=== PATIENT | male | born 1980 | race Caucasian/White ===

== ENCOUNTER 2021-01-19 23:58 | Emergency (ER) | payer MEDICAID ==
[~2021-01-19] VITALS: Ht 177.8 cm; Wt 70.0 kg
--- OUTSIDE RECORDS SUMMARY | 2021-01-20 00:11 | XMS REPORT | Clinical Summary ---
Author Author [facility] Organization [facility] Address Unknown Phone Unavailable Care Team Providers Care Head Of Stock Name Role Phone German Ro MD Unavailable Neymar Tenorio DO [id number] Neymar Tenorio DO PCP Source Comments Some departments are not documenting in the electronic medical record. If you d o not see the information that you expected, contact Release of Information in [facility] Information Management department at [phone] for further assistan ce in locating additional records.[facility] Allergies No Known Active Allergies Medications End Date Status Medication Sig Dispensed Refills Start Date Active benztropine (COGENTIN) 1 Take 1 mg by 0 mg tablet mouth twice daily. Active risperiDONE (RISPERDAL) 2 Take 2 mg by 0 mg tablet mouth twice daily. Active ALPRAZolam (XANAX) 0.5 mg Take 0.5 mg 0 tablet by mouth three times daily as needed. Active ledipasvir-sofosbuvir(+) Take 1 Tab by 30 Tab 1 (HARVONI) 90-400 mg mouth daily. 5 tabletIndications: Chronic hepatitis C without hepatic coma (HCC) Active Problems No known active problems Social History Date Tobacco Use Types Packs/Day Years Used Current Every Day Smoker Cigarettes 1 Comments Alcohol Use Standard Drinks/Week No 0 (1 standard drink = 0.6 o z pure alcohol) Sex Assigned at Date Recorded Not on file Last Filed Vital Signs Reading Time Taken Comments Vital Sign 110/72 12/16/2014 10:12 AM CDT Blood Pressure 76 12/16/2014 10:12 AM CDT Pulse 36.4 C (97.6 F) 12/16/2014 10:12 AM CDT Temperature 16 12/16/2014 10:12 AM CDT Respiratory Rate - - Oxygen Saturation - - Inhaled Oxygen Concentration 77.8 kg (171 lb 9.6 oz) 12/16/2014 10:12 AM CDT Weight 180.3 cm (5' 11") 12/16/2014 10:12 AM CDT Height 23.93 12/16/2014 10:12 AM CDT Body Mass Index Plan of Treatment Health Maintenance Due Date Last Done Comments DTAP/TDAP VACCINES (1 - 1999 Tdap) PHYSICAL (COMPREHENSIVE) 1999 EXAM INFLUENZA VACCINE 11/12/2020 HEPATITIS C SCREENING Completed 11/15/2014, 11/15/2014 HIV SCREENING Completed 11/15/2014 Results Not on filefrom Last 3 Months Insurance Type Payer Benefit Subscriber ID Effective Phone Address Plan / Dates Group Medicaid [facility] MEDICAID [facility] [id number] 2014-P [employer] [id number] ([place]) [place] [id number] Advance Directives Patient Salesforce Business Analyst Explanation Type Date Recorded Advance 11/15/2014 2:42 PM Directive/DPOA
[2021-01-20 00:22] VITALS: BP 135/111
--- NOTE | 2021-01-20 00:26 | ED General ---
General Stated Complaint: WANTS TO BE EVALUATED;JUST GOT OUT OF [facility] Source of Information: Patient Exam Limitations: No Limitations History of Present Illness Date Seen by Provider: Jan 20, 2021 Time Seen by Provider: 00:11 Initial Comments Patient to the ER by private conveyance with his daughter and chief complaint that he had an episode at home with some family members and they were trying to remove him from his home. His family brought him out to the ER to be evaluated. He denies any homicidal suicidal ideations. He denies having any hallucinations or command hallucinations. He states he takes his Risperdal half a milligram from his [facility] psychiatrist on a scheduled basis. He is not having any pain nausea vomiting diarrhea fever chills sweats. He denies any physical altercation. He declines going to what happened tonight any further. His family dropped him off and left. Allergies and Home Medications Patient Home Medication List Home Medication List Reviewed: Yes Review of Systems Review of Systems Constitutional: No chills, No diaphoresis EENTM: No ear discharge, No ear pain Respiratory: No cough, No short of breath Cardiovascular: No chest pain, No edema Gastrointestinal: No abdominal pain, No nausea, No vomiting Genitourinary: No discharge, No dysuria Musculoskeletal: No back pain, No joint pain Skin: No pruritus, No rash All Other Systems Reviewed Negative Unless Noted: Yes Past Hhhplcc-Pxhqpe-Jkjcwx Hx Patient Social History Tobacco Use?: Yes Smoking Status: Current Everyday Smoker Smokeless Tobacco Frequency: Current Everyday User Use of E-Cig and/or Vaping dev: No Substance use?: Yes Substance type: Marijuana Alcohol Use?: No Physical Exam Vital Signs Capillary Refill : Height, Weight, BMI Height: '" Weight: lbs. oz. kg; BMI Method: General Appearance: No Apparent Distress, WD/WN Eyes: Bilateral Eye Normal Inspection, Bilateral Eye PERRL, Bilateral Eye EOMI HEENT: PERRL/EOMI, TMs Normal, Pharynx Normal, Moist Mucous Membranes Neck: Full Range of Motion, Normal Inspection Respiratory: No Accessory Muscle Use, No Respiratory Distress Extremity: Normal Capillary Refill, Normal Inspection, No Pedal Edema Neurologic/Psychiatric: Alert, Oriented x3, No Motor/Sensory Deficits, Normal Mood/Affect (Cooperative, denies hallucinations, suicidal ideation, homicidal ideation.) Skin: Normal Color, Warm/Dry Progress/Results/Core Measures Suspected Sepsis SIRS Temperature: Pulse: Respiratory Rate: Blood Pressure / Mean: Results/Orders Vital Signs/I&O Capillary Refill : Progress Note : Time: 00:24 Progress Note Patient does not appear to be in acute distress physically or psychologically. He does not want any help. He states he came out because his daughter insisted he come out just to be evaluated. He does not feel he is having any difficulty and wishes to return home. His daughter stated she would come by to pick him up when he was done. Departure Impression Primary Impression: General medical exam Additional Impression: History of schizophrenia Disposition: HOME, SELF-CARE Condition: Stable Departure-Patient Inst. Decision time for Depature: 00:25 Referrals: [facility] (PCP/Family) Primary Care Physician Patient Instructions: Schizophrenia (DC) Add. Discharge Instructions: Continue taking your medications as prescribed. Keep your follow-up appointment in the next couple weeks with your psychiatrist. Return to the ER if you are having worsening symptoms especially such as suicidal thoughts, commanding hallucinations or other worrisome symptoms. RA STODDARD Jan 20, 2021 00:26
== END 2021-01-20 00:27 | disposition home or self-care (01) ==
LOC: EDUNIT# 23:58 → ER 01-20 00:08
DX: Z00.00 Encounter for general adult medical examination without abnormal findings (principal); Z86.59 Personal history of other mental and behavioral disorders; F17.200 Nicotine dependence, unspecified, uncomplicated
CPT/HCPCS: 99281

== ENCOUNTER 2021-01-20 01:12 | Emergency (ER) | payer MEDICAID ==
--- NOTE | 2021-01-20 01:43 | ED Psychosocial ---
General Stated Complaint: PSYCH ISSUES Source: patient Exam Limitations: no limitations History of Present Illness Date Seen by Provider: Jan 20, 2021 Time Seen by Provider: 01:15 Initial Comments Patient returns to the ER and [facility] and stating he was not entirely forthcoming with us earlier. Patient states that the reason he had a row at home was because he was sitting up stairs in his bedroom minding his own business watching some pornography on his cell phone when a gentleman who was dressed like a woman in another room yelled at him trying to entice him into some erotic fantasy made him angry because as he got closer he realized that the gentleman was not really a woman. He said he did not want anything to do with that and so told him to leave. He then got upset and went downstairs and was expressing his displeasure to his daughter. He said it was okay for me to speak to his daughter so we called her on the phone and she states that he was very agitated talking about how someone was posing as a woman trying to entice him and she says there was no other men or women upstairs. He was alone and she has her children downstairs along with her mother. She states for the past couple days that he has been he has came down a couple times and complained that they needed to turn the music down when there was no music playing. She states that maybe it was his schizophrenia and this agitated him. She turned the TV off and he continued to complain that there were voices and music playing in the [place]. She states he is very agitated and standing over her bed yelling at her so she called her significant other's father and significant other to come and eject him from the house. She insisted that he come to the ER to get help because she felt that his schizophrenia was not under good control. He is insistent however that he is not having a schizophrenic episode but rather these events truly did happen. Allergies and Home Medications Allergies Coded Allergies: No Known Drug Allergies (Unverified , 01/20/21) Patient Home Medication List Home Medication List Reviewed: Yes Review of Systems Constitutional: No chills, No diaphoresis EENTM: No hearing loss, No ear pain Respiratory: No cough, No dyspnea on exertion Cardiovascular: No chest pain Gastrointestinal: No abdominal pain, No constipation Genitourinary: No discharge, No dysuria Musculoskeletal: No back pain, No joint pain All Other Systems Reviewed Negative Unless Noted: Yes Past Umeesze-Qgesrj-Zmwrsy Hx Patient Social History Tobacco Use?: No Use of E-Cig and/or Vaping dev: No Physical Exam Capillary Refill : Height, Weight, BMI Height: '" Weight: lbs. oz. kg; 22.00 BMI Method: General Appearance: WD/WN, no apparent distress HEENT: PERRL/EOMI, pharynx normal Neck: full range of motion, supple, normal inspection Respiratory: lungs clear, normal breath sounds, no respiratory distress, no accessory muscle use Cardiovascular: normal peripheral pulses, regular rate, rhythm Peripheral Pulses: 2+ Radial Pulses (R), 2+ Radial Pulses (L) Gastrointestinal: normal bowel sounds, non tender, soft Neurologic/Psychiatric: alert, normal mood/affect, oriented x 3 Appearance/Memory: appropriate appearance, neat, no memory impairment Behavior/Eye Contact: cooperative, good eye contact Progress/Results/Core Measures Results/Orders My Orders Orders - RA STODDARD Ziprasidone Capsule (Geodon Capsule) (01/20/21 02:00) Medications Given in ED Current Medications Medications Dose Ordered Sig/Srini Route Start Time Stop Time Status Last Admin Dose Admin Ziprasidone 20 mg ONCE ONCE PO 01/20/21 02:00 01/20/21 02:02 DC 01/20/21 02:07 20 MG Progress Progress Note : Time: 01:41 Progress Note Had lengthy discussion with the patient as well as his daughter and he has agreed to take some Geodon pill so he can get a little sleep tonight and then deal with this in the morning. I talked to his daughter and she seems to be okay with us giving him an antipsychotic that will also help him sleep tonight. Our goal is that he will improve his clarity of thought by morning time and resume his Risperdal. We have also encouraged him to follow-up with a psychiatrist which she states he will do and get an appointment set up. Departure Impression Primary Impression: History of schizophrenia Disposition: HOME, SELF-CARE Condition: Stable Departure-Patient Inst. Decision time for Depature: 01:50 Referrals: [facility] (PCP/Family) Primary Care Physician Patient Instructions: Schizophrenia (DC) Add. Discharge Instructions: Please continue to take your medication as prescribed. Friday morning call your psychiatrist and schedule an appointment. If you cannot make it until Friday then you are welcome to return to the ER for help. Copy Copies To 1: ROSE MARIE FLORES TITUS J Jan 20, 2021 01:43
[2021-01-20] MEDS ORDERED: ZIPRASIDONE 20 MG (GEODON) CAP PO ONE (02:00)
== END 2021-01-20 02:07 | disposition home or self-care (01) ==
LOC: EDUNIT# 01:12 → ER 01:15
DX: Z86.59 Personal history of other mental and behavioral disorders (principal)